=== PATIENT | male | born 1960 | race Caucasian/White ===

== ENCOUNTER → 2022-05-12 | Outpatient (RCR) | payer OTHER | LOC: CR 09:34 | PROVIDERS: ATTEND Internal Medicine | DX: Z29.8 Encounter for other specified prophylactic measures (principal); I50.43 Acute on chronic combined systolic (congestive) and diastolic (congestive) heart failure | CPT/HCPCS: 93798 ==

== ENCOUNTER → 2022-06-11 | Outpatient (RCR) | payer OTHER | END | disposition home or self-care (01) | LOC: CR 05-14 14:02 | PROVIDERS: ATTEND Internal Medicine | DX: Z29.8 Encounter for other specified prophylactic measures (principal); I50.43 Acute on chronic combined systolic (congestive) and diastolic (congestive) heart failure | CPT/HCPCS: 93798 ==

== ENCOUNTER → 2022-07-12 | Outpatient (RCR) | payer OTHER | END | disposition home or self-care (01) | LOC: CR 06-16 09:43 | PROVIDERS: ATTEND Internal Medicine | DX: Z29.8 Encounter for other specified prophylactic measures (principal); I50.43 Acute on chronic combined systolic (congestive) and diastolic (congestive) heart failure | CPT/HCPCS: 93798 ==

== ENCOUNTER → 2022-08-11 | Outpatient (RCR) | payer OTHER | END | disposition home or self-care (01) | LOC: CR 07-14 06:30 | PROVIDERS: ATTEND Internal Medicine | DX: Z29.8 Encounter for other specified prophylactic measures (principal); I50.43 Acute on chronic combined systolic (congestive) and diastolic (congestive) heart failure | CPT/HCPCS: 93798 ==

== ENCOUNTER 2022-08-16 09:53 | Outpatient (RCR) | payer OTHER | END 2022-09-11 | disposition home or self-care (01) | LOC: CR 09:53 | PROVIDERS: ATTEND Internal Medicine | DX: Z29.8 Encounter for other specified prophylactic measures (principal); I50.43 Acute on chronic combined systolic (congestive) and diastolic (congestive) heart failure | CPT/HCPCS: 93798 ==

== ENCOUNTER 2022-09-15 07:04 | Outpatient (RCR) | payer OTHER | END 2022-10-12 | disposition home or self-care (01) | LOC: CR 07:04 | PROVIDERS: ATTEND Internal Medicine | DX: Z29.8 Encounter for other specified prophylactic measures (principal); I50.43 Acute on chronic combined systolic (congestive) and diastolic (congestive) heart failure ==

== ENCOUNTER → 2022-10-07 | Outpatient (CLI) | payer OTHER ==
[2022-10-07 11:31] LABS: BASOPHILS # (AUTO) 0.1 10^3/uL (0.0-0.1); BASOPHILS % (AUTO) 1 % (0-10); EOSINOPHILS # (AUTO) 0.1 10^3/uL (0.0-0.3); EOSINOPHILS % (AUTO) 1 % (0-10); HEMATOCRIT 45 % (40-54); HEMOGLOBIN 15.8 g/dL (13.3-17.7); LYMPHOCYTES # (AUTO) 2.2 10^3/uL (1.0-4.0); LYMPHOCYTES % (AUTO) 24 % (12-44); MEAN CORPUSCULAR HEMOGLOBIN 31 pg (25-34); MEAN CORPUSCULAR HGB CONC 35 g/dL (32-36); MEAN CORPUSCULAR VOLUME 90 fL (80-99); MEAN PLATELET VOLUME 9.4 fL (9.0-12.2); MONOCYTES # (AUTO) 0.8 10^3/uL (0.0-1.0); MONOCYTES % (AUTO) 9 % (0-12); NEUTROPHILS # (AUTO) 5.7 10^3/uL (1.8-7.8); NEUTROPHILS % (AUTO) 65 % (42-75); PLATELET COUNT 222 10^3/uL (130-400); WHITE BLOOD COUNT 8.8 10^3/uL (4.3-11.0)
[2022-10-07 11:48] LABS: CALCIUM 9.4 MG/DL (8.5-10.1); CREATININE SERUM 1.37 MG/DL (0.60-1.30); MAGNESIUM 2.2 MG/DL (1.6-2.4); POTASSIUM 4.5 MMOL/L (3.6-5.0)
== END ==
LOC: LAB 11:08
PROVIDERS: ATTEND Internal Medicine Cardiovascular Disease
DX: Z95.811 Presence of heart assist device (principal)
CPT/HCPCS: 36415; 80048; 83615; 83735; 83880; 85025

== ENCOUNTER → 2022-10-28 | Outpatient (CLI) | payer OTHER | LOC: LAB 08:09 | PROVIDERS: ATTEND Internal Medicine | DX: I50.42 Chronic combined systolic (congestive) and diastolic (congestive) heart failure (principal) ==

== ENCOUNTER → 2022-12-24 | Outpatient (CLI) | payer OTHER ==
[2022-12-24 09:52] LABS: BASOPHILS # (AUTO) 0.1 10^3/uL (0.0-0.1); BASOPHILS % (AUTO) 1 % (0-10); EOSINOPHILS # (AUTO) 0.1 10^3/uL (0.0-0.3); EOSINOPHILS % (AUTO) 1 % (0-10); HEMATOCRIT 42 % (40-54); HEMOGLOBIN 15.1 g/dL (13.3-17.7); LYMPHOCYTES # (AUTO) 1.7 10^3/uL (1.0-4.0); LYMPHOCYTES % (AUTO) 24 % (12-44); MEAN CORPUSCULAR HEMOGLOBIN 32 pg (25-34); MEAN CORPUSCULAR HGB CONC 36 g/dL (32-36); MEAN CORPUSCULAR VOLUME 88 fL (80-99); MEAN PLATELET VOLUME 9.2 fL (9.0-12.2); MONOCYTES # (AUTO) 0.7 10^3/uL (0.0-1.0); MONOCYTES % (AUTO) 10 % (0-12); NEUTROPHILS # (AUTO) 4.6 10^3/uL (1.8-7.8); NEUTROPHILS % (AUTO) 64 % (42-75); PLATELET COUNT 191 10^3/uL (130-400); WHITE BLOOD COUNT 7.2 10^3/uL (4.3-11.0)
[2022-12-24 10:01] LABS: POTASSIUM 4.5 MMOL/L (3.6-5.0)
[2022-12-24 10:03] LABS: CALCIUM 8.8 MG/DL (8.5-10.1)
[2022-12-24 10:07] LABS: CREATININE SERUM 1.08 MG/DL (0.60-1.30)
== END ==
LOC: LAB 09:27
DX: Z95.811 Presence of heart assist device (principal)
CPT/HCPCS: 36415; 80048; 85025